=== PATIENT | female | born 1995 | race Caucasian/White ===

== ENCOUNTER 2016-12-01 10:34 | Inpatient (IN) | payer MEDICAID ==
[~2016-12-01] VITALS: Ht 139.7 cm; Wt 76.8 kg
[~2016-12-01 10:34] MED LIST: ACET500C5 PO; ONDA4TAB8 PO
[2016-12-01 11:13] VITALS: BP 113/67; PULSE 85; Ht 139.7 cm; Wt 76.8 kg
[2016-12-01] MEDS ORDERED: PRENAT PO (11:15)
[2016-12-01] MEDS ORDERED: CARBOPROST 250 MCG INJ IM PRN (12:00)
[2016-12-01] MEDS ORDERED: METHYLERGONOVINE 0.2 MG INJ IM PRN (12:00)
[2016-12-01] MEDS ORDERED: AMPICILLIN 2 GM/NS (PMX) 100 ML IV ONE (12:00)
[2016-12-01] MEDS ORDERED: LIDOCAINE 1% (MPF) 30 ML INJ INJ PRN (12:00)
[2016-12-01] MEDS ORDERED: LACTATED RINGER'S 1,000 ML IV PRN (12:00)
[2016-12-01] MEDS ORDERED: MISOPROSTOL 200 MCG TAB PR PRN (12:00)
[2016-12-01] MEDS ORDERED: OXYTOCIN 30 UNITS/LR 500 ML IV PRN (12:00)
[2016-12-01] MEDS: LACTATED RINGER'S 1,000 ML IV SCH ×2 (12:44→22:40)
[2016-12-01 13:00] LABS: ADD SCAN DIFF NO
[2016-12-01 13:16] LABS: BASOPHILS % 0.2 % (0.0-2.0); EOSINOPHILS # 0.1 10^3/ul (0.0-0.5); EOSINOPHILS % 0.5 % (0.0-7.0); HEMATOCRIT 38.5 % (37.0-47.0); HEMOGLOBIN 13.7 g/dl (12.0-16.0); LYMPHOCYTES % 19.1 % (15.0-51.0); MEAN CORPUSCULAR HEMOGLOBIN 30.8 pg (29.0-33.0); MEAN CORPUSCULAR HGB CONC 35.6 g/dl (32.0-37.0); MEAN CORPUSCULAR VOLUME 86.5 fl (82.0-101.0); MEAN PLATELET VOLUME 11.5 fl (7.4-10.4); MONOCYTE # 0.7 10^3/ul (0.3-0.9); MONOCYTES % 6.2 % (0.0-11.0); NEUTROPHIL # 7.8 10^3/ul (1.6-7.5); NEUTROPHILS % 73.5 % (39.0-77.0); PLATELET COUNT 208 10^3/UL (140-415); RED BLOOD COUNT 4.45 10^6/ul (4.20-5.40); RED CELL DISTRIBUTION WIDTH 13.2 % (11.5-14.5); WHITE BLOOD COUNT 10.6 10^3/ul (4.8-10.8)
[2016-12-01 14:33] LABS: INR 0.88; PARTIAL THROMBOPLASTIN TIME 22.9 Sec (25.0-35.0); PROTIME 11.9 Sec (12.2-14.2); PT RATIO 0.9
--- NOTE | 2016-12-01 15:48 | RADRPT ---
PROCEDURE: US OB. CLINICAL INDICATION: Size and dates , macrosomia TECHNIQUE: Multiple sonographic images of the pelvis and gravid uterus were obtained. The images were reviewed on a PACS workstation. COMPARISON: No prior studies are available for comparison. FINDINGS: There is a single viable intrauterine gestation. Cardiac activity is present with 132 beats per min betzaida. There is a vertex presentation. The placenta is posterior. There is no evidence for an abruption or placenta previa. Measurements were made in order to determine age. The results are as follows: BPD =9.0 cm HC =32.4 cm AC =34.8 cm FL =7.2 cm Estimated gestational age of approximately 37 weeks and 1 day based on ultrasound measurements. Clinical age: 41 weeks and 1 day. The estimated date of delivery is 12/21/16, based on ultrasound measurements. The EFW = 3308 g. RPTAT: AA IMPRESSION: Single viable intrauterine gestation of approximately 37 weeks and 1 days based on ultrasound measu rements. Smaller than clinical age by 4 weeks. .Gokul Richards MD, MD Date Time Electronically viewed and signed by .Gokul Richards MD, on 12/01/2016 15:48 .S/
[2016-12-01] MEDS: AMPICILLIN 1 GM/NS (PMX) 50 ML IV SCH ×3 (16:19→23:59)
[2016-12-01] MEDS ORDERED: OXYTOCIN 30 UNITS/LR 500 ML IV SCH ×2 (16:30)
[2016-12-01] MEDS: OXYTOCIN 30 UNITS/LR 500 ML IV SCH (16:47)
--- NOTE | 2016-12-01 17:28 | HP ---
Date/Time of Note Date/Time of Note DATE: 12/01/16 TIME: 17:21 OB - History Hx of Present Free Text/Dictation 20 years old female 1 para 0 EDC November 23, 2016 admitted to [facility] at 41 week and 1day for induction of labor pelvic examination on admission cervix 2 cm dilated 70% effaced vertex at -2 station plan of Pitocin induction discussed with the patient pros and cons sprain patient agreed Chief Complaint: 41 week and 1 day admitted for induction of labor Estimated Due Date: Nov 23, 2016 : 1 Para: 0 Care: Good Care Ultrasounds: Normal mid trimester US Obstetrical Complications: None Medical Complications: None Past Family/Social History * Past Medical, Surgical, Family and Obstetric Histories reviewed from chart. Rubella: immune RPR/VDRL: Negative GBS Status: Negative HBsAG: Negative OB Admission Exam Vital Signs Vital Signs Vital Signs Date Time Temp Pulse Resp B/P Pulse Ox O2 Delivery O2 Flow Rate FiO2 12/01/16 11:13 98.4 85 113/67 Physical Exam HEENT: WNL Heart: Rhythm Normal Lungs: Clear, Equal Abdomen: WNL Extremities: Normal Cervical Dilatation: 2cm Effacement: 75% Station: -2 Membranes: Ruptured Amniotic Fluid: Clear Heart Rate: 130's Decelerations: Variable Decelerations Varibility: Moderate Contractions on Admission: None Last 72 hours Lab Results CBC & BMP 12/01/16 12:40 OB Assessment/Plan Reason for admission: other (Induction of labor with Pitocin IV drip) GINA FISH MD Dec 01, 2016 17:28
[2016-12-02] MEDS ORDERED: ACETAMINOPHEN 325 MG TAB PO ONE (01:00)
[2016-12-02] MEDS: AMPICILLIN 1 GM/NS (PMX) 50 ML IV SCH ×5 (04:28→19:59)
[2016-12-02] MEDS: LACTATED RINGER'S 1,000 ML IV SCH ×3 (04:59→22:56)
[2016-12-02] MEDS ORDERED: LACTATED RINGER'S 1,000 ML IV ONE (21:42)
[2016-12-02] MEDS ORDERED: FENTAnyl 2MCG/ML-ROPIV 0.2% 100 ML ONE (21:46)
[2016-12-02] MEDS ORDERED: ONDANSETRON 4 MG INJ ONE (21:50)
[2016-12-02] MEDS ORDERED: CITRIC ACID/NA CITRATE 30 ML CUP ONE (21:50)
[2016-12-02] MEDS ORDERED: CITRIC ACID/NA CITRATE 30 ML CUP PO ONE (22:00)
[2016-12-02] MEDS ORDERED: FENTAnyl 2MCG/ML-ROPIV 0.2% 100 ML BAG EPI SCH (22:00)
[2016-12-02] MEDS ORDERED: morphine 2 MG INJ IV PRN ×2 (22:00)
[2016-12-02] MEDS ORDERED: DIPHENHYDRAMINE 50 MG INJ IV PRN (22:00)
[2016-12-02] MEDS ORDERED: NALOXONE (0.4 MG/ML) INJ IV PRN (22:00)
[2016-12-02] MEDS ORDERED: KETOROLAC 30 MG INJ IV PRN (22:00)
[2016-12-02] MEDS ORDERED: ONDANSETRON 4 MG INJ IV ONE (22:00)
[2016-12-02] MEDS ORDERED: PROCHLORPERAZINE 10 MG INJ IV PRN (22:00)
[2016-12-02] MEDS ORDERED: ONDANSETRON 4 MG INJ IV PRN (22:00)
[2016-12-02] MEDS: FENTAnyl 2MCG/ML-ROPIV 0.2% 100 ML BAG EPI SCH (22:57)
[2016-12-03] MEDS: AMPICILLIN 1 GM/NS (PMX) 50 ML IV SCH ×6 (00:57→20:22)
[2016-12-03] MEDS: LACTATED RINGER'S 1,000 ML IV SCH ×3 (04:15→20:09)
[2016-12-03] MEDS: FENTAnyl 2MCG/ML-ROPIV 0.2% 100 ML BAG EPI SCH (07:15)
[2016-12-03] MEDS ORDERED: MINERAL OIL LIGHT 10 ML VIAL TOP ONE (19:30)
[2016-12-04] MEDS: AMPICILLIN 1 GM/NS (PMX) 50 ML IV SCH ×4 (00:22→12:00)
[2016-12-04] MEDS: LACTATED RINGER'S 1,000 ML IV SCH ×2 (01:58→11:58)
[2016-12-04] MEDS ORDERED: DEXTROSE 5%-LR 1,000 ML IV PRN (02:00)
[2016-12-04] MEDS: FENTAnyl 2MCG/ML-ROPIV 0.2% 100 ML BAG EPI SCH (02:12)
[2016-12-04] MEDS: OXYTOCIN 30 UNITS/LR 500 ML IV SCH ×3 (06:12→20:45)
[2016-12-04] MEDS ORDERED: CEFAZOLIN 2 GM/50 ML (PMX) 50 ML IVPB ONE (07:00)
[2016-12-04] MEDS ORDERED: LACTATED RINGER'S 1,000 ML IV ONE (07:40)
[2016-12-04] MEDS ORDERED: FAMOTIDINE 20 MG INJ IV ONE (08:00)
[2016-12-04] MEDS ORDERED: METOCLOPRAMIDE 10 MG INJ IV ONE (08:00)
[2016-12-04] MEDS ORDERED: CITRIC ACID/NA CITRATE 30 ML CUP PO ONE (08:00)
[2016-12-04] MEDS ORDERED: LIDOCAINE 2%/EPI 30 ML INJ ONE ×2 (09:15→09:26)
[2016-12-04] MEDS ORDERED: SODIUM BICARBONATE (IV ADD) 50 ML ONE (09:15)
[2016-12-04] MEDS ORDERED: FENTAnyl 50 MCG/ML VIAL ONE (09:21)
[2016-12-04] MEDS ORDERED: morphine SULFATE/PF (10 MG/10 ML) INJ ONE (09:23)
[2016-12-04] MEDS ORDERED: PHENYLephrine (100 MCG/ML) 5ML SYG ONE (09:59)
[2016-12-04] MEDS ORDERED: DIPHENHYDRAMINE 50 MG INJ IV PRN ×2 (10:00)
[2016-12-04] MEDS ORDERED: FENTAnyl 50 MCG/ML VIAL IV PRN (10:00)
[2016-12-04] MEDS ORDERED: KETOROLAC 30 MG INJ IV PRN (10:00)
[2016-12-04] MEDS ORDERED: NALOXONE (0.4 MG/ML) INJ IV PRN (10:00)
[2016-12-04] MEDS ORDERED: HYDROmorphONE 1 MG/ML SYG IV PRN ×2 (10:00)
[2016-12-04] MEDS ORDERED: ZOLPIDEM 5 MG TAB PO PRN (10:00)
[2016-12-04] MEDS ORDERED: HYDROmorphONE (0.2 MG/ML) 10ML SYG IV PRN (10:00)
[2016-12-04] MEDS ORDERED: PROCHLORPERAZINE 10 MG INJ IV PRN ×2 (10:00)
[2016-12-04] MEDS ORDERED: MEPERIDINE 25 MG INJ IV PRN (10:00)
[2016-12-04] MEDS ORDERED: ONDANSETRON 4 MG INJ IV PRN ×2 (10:00)
[2016-12-04] MEDS ORDERED: ONDANSETRON 4 MG INJ ONE (10:01)
--- NOTE | 2016-12-04 10:42 | OPR ---
Operative Report Planned Procedure Free Text/Dictation 21 years old 1 para 0 whom she was admitted at 41 weeks and 4 days for induction of labor pelvic examination on admission cervix was 2 cm dilated 75% effaced vertex at -2 station patient underwent Pitocin induction, progress to 5 cm dilatation but no further progress from then on also she developed tachycardia during the last 30-45 minutes before delivery, due to failure to progress and tachycardia alternative route of delivery by section discussed with her, pros and cons ,complications including but not limited to bowel and bladder injury infection hemorrhage wound hematoma she declined further trial of labor requesting delivery Procedure date Dec 04, 2016 Procedure(s) Primary Performed by: GINA FISH MD Assisting provider: VINCENT ROSE MD Anesthesiologist: SMITH ANTOINE MD Pre-procedure diagnosis 41 weeks 4 days failure to progress, tachycardia Anesthesia Type: epidural Procedure Description Under satisfactory epidural anesthesia, patient was prepped and draped and placed in a supine position, tilted to the left. Pfannenstiel incision was made , carried through the subcutaneous tissue. Bleeders brought under control with electrocautery. Fascia incised to the length of the incision. Rectus muscles from the fascia, divided midline. Peritoneum exposed, entered through a transverse incision. Exploration of abdomen revealed gravid uterus. at term normal-appearing tubes and ovaries and evidence of long labor, bladder flap was developed. Transverse incision was made in the lower segment of the uterus. Amniotic sac ruptured. Meconium stain amniotic fluid noted. Live baby girl was delivered from occiput posterior with nuchal cord 1 tight around the baby' s neck [] Nasal oropharyngeal suction was performed. baby handed to the team for immediate attention. placenta delivered manually was intact. Meconium stain sent to pathology, uterine cavity was cleaned with wet sponge and drainage established. Uterus closed in 2 layers using Monocryl #1 [] in continuous fashion. Peritoneal cavity irrigated with warm saline. Sponge, needle and instrument count reported to be correct. Abdominal peritoneum closed with 2-0 chromic catgut] continuously. Rectus muscle approximated with [] several interrupted 2-0 chromic catgut. Fascia closed with #1 PDS subcutaneous tissue approximated with several interrupted 2-0 chromic catgut [], skin closed with osbaldo. Estimated blood loss 600 cc . Urine bag contained 200 mL of clear urine patient tolerated procedure well and transferred to recovery room in good condition Post-Procedure Findings: Live Baby [girl], Apgars [8] and [9], weight [], position vertex, presentation occiput posterior Complications: None Pt Condition post procedure: stable Disposition: other (Recovery room) Physician Certification I, the undersigned physician, hereby certify that I have discussed the procedure described in this consent form with this patient (or the patient's legal operations support representative), including: * The risk and benefits of the procedure; * Any adverse reactions that may reasonably be expected to occur; * Any alternative efficacious methods of treatment which may be medically viable ; * The potential problems that may occur during recuperation; * Potential for blood transfusion and associated risks/benefits; and * Any research or economic interest I may have regarding this treatment. I further certify that the patient/legally responsible person was encouraged to ask question and that all questions were answered. GINA FISH MD Dec 04, 2016 10:29
[2016-12-04] MEDS ORDERED: CARBOPROST 250 MCG INJ IM PRN (16:00)
[2016-12-04] MEDS ORDERED: LANOLIN 7 GM TUBE TOP PRN (16:00)
[2016-12-04] MEDS ORDERED: MISOPROSTOL 200 MCG TAB PR PRN (16:00)
[2016-12-04] MEDS ORDERED: CEFAZOLIN 1 GM/50 ML (PMX) 50 ML IVPB SCH (16:00)
[2016-12-04] MEDS ORDERED: ACETAMINOPHEN/CODEINE #3 TAB PO PRN ×2 (16:00)
[2016-12-04] MEDS ORDERED: OXYTOCIN 30 UNITS/LR 500 ML IV PRN (16:00)
[2016-12-04] MEDS ORDERED: METHYLERGONOVINE 0.2 MG INJ IM PRN (16:00)
[2016-12-04 16:30] VITALS: BP 128/76; PULSE 82; RESP 18
[2016-12-04 17:00] VITALS: BP 130/69; PULSE 82; RESP 18
[2016-12-04 17:30] VITALS: BP 123/68; PULSE 79; RESP 19
[2016-12-04 18:00] VITALS: BP 123/67; PULSE 97
[2016-12-04] MEDS: KETOROLAC 30 MG INJ IV PRN (19:59)
[2016-12-04 20:00] VITALS: BP 121/69; PULSE 100; RESP 16
[2016-12-04] MEDS: SENNA/DOCUSATE NA (8.6MG/50MG) TAB PO SCH (20:44)
[2016-12-05] VITALS: BP 115/56; PULSE 105; RESP 17
[2016-12-05] MEDS: OXYTOCIN 30 UNITS/LR 500 ML IV SCH ×7 (01:24→23:56)
[2016-12-05 04:00] VITALS: BP 121/65; PULSE 91; RESP 18
[2016-12-05] MEDS: KETOROLAC 30 MG INJ IV PRN (05:37)
[2016-12-05] MEDS: IBUPROFEN 600 MG TAB PO SCH ×4 (06:00→23:07)
[2016-12-05 07:55] VITALS: BP 112/68; PULSE 86; RESP 18
[2016-12-05 07:58] LABS: ADD SCAN DIFF NO
[2016-12-05 08:14] LABS: BASOPHILS % 0.2 % (0.0-2.0); EOSINOPHILS # 0.1 10^3/ul (0.0-0.5); EOSINOPHILS % 0.9 % (0.0-7.0); HEMATOCRIT 29.7 % (37.0-47.0); HEMOGLOBIN 10.4 g/dl (12.0-16.0); LYMPHOCYTES # 1.5 10^3/ul (0.8-2.9); LYMPHOCYTES % 12.1 % (15.0-51.0); MEAN CORPUSCULAR HEMOGLOBIN 30.9 pg (29.0-33.0); MEAN CORPUSCULAR VOLUME 88.1 fl (82.0-101.0); MEAN PLATELET VOLUME 11.4 fl (7.4-10.4); MONOCYTE # 0.7 10^3/ul (0.3-0.9); MONOCYTES % 5.2 % (0.0-11.0); NEUTROPHIL # 10.3 10^3/ul (1.6-7.5); NEUTROPHILS % 80.8 % (39.0-77.0); PLATELET COUNT 149 10^3/UL (140-415); RED BLOOD COUNT 3.37 10^6/ul (4.20-5.40); RED CELL DISTRIBUTION WIDTH 13.5 % (11.5-14.5); WHITE BLOOD COUNT 12.8 10^3/ul (4.8-10.8)
[2016-12-05] MEDS: SENNA/DOCUSATE NA (8.6MG/50MG) TAB PO SCH ×2 (09:33→20:17)
[2016-12-05] MEDS: OXYCODONE/ACETAMINOPHEN (5/325) TAB PO PRN ×3 (10:39→23:07)
[2016-12-05 12:00] VITALS: BP 107/58; PULSE 98; RESP 20
--- NOTE | 2016-12-05 14:34 | PN ---
Date/Time of Note Date/Time of Note DATE: 12/05/16 TIME: 14:33 OB Subjective Subjective Subjective Post day 1 Afebrile vital signs are listed abdomen soft bowel sounds present lochia moderate extremity normal ambulation encouraged Laboratory Tests Test 12/05/16 07:32 White Blood Count 12.810^3/ul Red Blood Count 3.3710^6/ul Hemoglobin 10.4g/dl Hematocrit 29.7% Mean Corpuscular Volume 88.1fl Mean Corpuscular Hemoglobin 30.9pg Mean Corpuscular Hemoglobin Concent 35.0g/dl Red Cell Distribution Width 13.5% Platelet Count 70601^3/UL Mean Platelet Volume 11.4fl Neutrophils % 80.8% Lymphocytes % 12.1% Monocytes % 5.2% Eosinophils % 0.9% Basophils % 0.2% Nucleated Red Blood Cells % 0.0/100WBC Neutrophils # 10.310^3/ul Lymphocytes # 1.510^3/ul Monocytes # 0.710^3/ul Eosinophils # 0.110^3/ul Basophils # 0.010^3/ul Nucleated Red Blood Cells # 0.010^3/ul Current Medications Medications (Trade) Dose Ordered Sig/Roberta Route PRN Reason Start Time Stop Time Status Last Admin Dose Admin Lactated Ringer's 1,000 ml @ 125 mls/hr Q8H IV 12/01/16 11:58 12/04/16 16:24 DC 12/04/16 01:58 Ampicillin 100 ml @ 100 mls/hr ONCE ONCE IV 12/01/16 12:00 12/01/16 13:00 DC 12/01/16 12:55 Ampicillin (Ampicillin 1 Gm/ NS (Pmx)) 50 ml @ 100 mls/hr Q4H IV 12/01/16 16:00 12/04/16 16:24 DC 12/04/16 08:22 Lidocaine 30 ml 30 ml ONCE PRN INJ EPISIOTOMY/TEARING 12/01/16 12:00 12/04/16 16:24 DC Lactated Ringer's 1,000 ml @ 2,000 mls/hr Q30M PRN IV PRE-EPIDURAL BOLUS 12/01/16 12:00 12/04/16 16:24 DC 12/02/16 21:39 Oxytocin/Lactated Ringer's 500 ml @ 0 mls/hr ONCE PRN IV For Hemorrhage Management 12/01/16 12:00 12/04/16 16:22 DC Methylergonovine Maleate (Methergine) 0.2 mg ONCE PRN IM VAGINAL BLEEDING 12/01/16 12:00 12/04/16 16:23 DC Carboprost Tromethamine (Hemabate) 250 mcg ONCE PRN IM VAGINAL BLEEDING 12/01/16 12:00 12/04/16 16:23 DC Misoprostol 1000 mcg 1,000 mcg ONCE PRN OR VAGINAL BLEEDING 12/01/16 12:00 12/04/16 16:23 DC Oxytocin/Lactated Ringer's 500 ml @ 0 mls/hr TITRATE IV 12/01/16 16:30 12/04/16 16:23 DC 12/04/16 06:12 Oxytocin/Lactated Ringer's 500 ml @ 125 mls/hr ONCE -MAY REPEAT X1 IV 12/01/16 16:30 12/04/16 16:23 DC 12/04/16 10:55 Oxytocin/Lactated Ringer's 500 ml @ 125 mls/hr ONCE IV 12/01/16 16:30 12/04/16 16:23 DC 12/04/16 14:59 Acetaminophen 650 mg 650 mg ONCE ONCE PO 12/02/16 01:00 12/02/16 01:01 DC Lactated Ringer's (Lr) 1,000 ml @ 1,000 mls/hr Q1H ONCE IV 12/02/16 21:42 12/02/16 22:41 DC Ondansetron HCl (Zofran Inj) 4 mg pre-procedure ONCE IV 12/02/16 22:00 12/02/16 22:01 DC 12/02/16 21:52 Citric Acid/ Sodium Citrate (Bicitra) 30 ml PRE-OP ONCE PO 12/02/16 22:00 12/02/16 22:01 DC 12/02/16 21:51 Naloxone HCl (Narcan) 0.1 mg Q2M PRN IV FOR RESP RATE 8 OR LESS 12/02/16 22:00 12/03/16 21:59 DC Ketorolac Tromethamine (Toradol) 30 mg Q6H PRN IV PAIN 12/02/16 22:00 12/03/16 21:59 DC Morphine Sulfate (morphine) 2 mg Q3H PRN IV PAIN LEVEL 1-5 12/02/16 22:00 12/03/16 21:59 DC Morphine Sulfate (morphine) 4 mg Q3H PRN IV PAIN LEVEL 6-10 12/02/16 22:00 12/03/16 21:59 DC Diphenhydramine HCl (Benadryl) 25 mg Q6H PRN IV ITCHING 12/02/16 22:00 12/03/16 21:59 DC Ondansetron HCl (Zofran Inj) 4 mg Q6H PRN IV NAUSEA AND/OR VOMITING 12/02/16 22:00 12/03/16 21:59 DC Prochlorperazine (Compazine Inj) 10 mg ONCE PRN IV NAUSEA AND/OR VOMITING 12/02/16 22:00 12/03/16 21:59 DC Fentanyl/ Ropivacaine 100 ml 100 ml EPIDURAL INFUSION EPI 12/02/16 22:00 12/02/16 22:50 DC Fentanyl/ Ropivacaine 100 ml @ ud STK-MED ONCE .ROUTE 12/02/16 21:46 12/02/16 21:47 DC Citric Acid/ Sodium Citrate (Bicitra) 30 ml STK-MED ONCE .ROUTE 12/02/16 21:50 12/02/16 21:51 DC Ondansetron HCl (Zofran Inj) 4 mg STK-MED ONCE .ROUTE 12/02/16 21:50 12/02/16 21:51 DC Fentanyl/ Ropivacaine 100 ml EPIDURAL INFUSION EPI 12/02/16 22:00 12/04/16 16:23 DC 12/04/16 02:12 Mineral Oil 20 ml 20 ml ONCE ONCE TOP 12/03/16 19:30 12/03/16 19:31 DC Dextrose/Lactated Ringer's 1,000 ml @ 125 mls/hr Q8H PRN IV prolonged labor, npo 12/04/16 02:00 12/04/16 16:23 DC 12/04/16 02:26 Cefazolin Sodium/ Dextrose 50 ml @ 100 mls/hr ONCE ONCE IVPB 12/04/16 07:00 12/04/16 07:29 DC Lactated Ringer's (Lr) 1,000 ml @ 1,000 mls/hr Q1H ONCE IV 12/04/16 07:40 12/04/16 08:39 DC 12/04/16 08:16 Citric Acid/ Sodium Citrate (Bicitra) 30 ml PRE-OP ONCE PO 12/04/16 08:00 12/04/16 08:01 DC 12/04/16 07:55 Famotidine (Pepcid Iv) 20 mg pre-procedure ONCE IV 12/04/16 08:00 12/04/16 08:01 DC 12/04/16 07:56 Metoclopramide HCl 10 mg 10 mg ONCE ONCE IV 12/04/16 08:00 12/04/16 08:01 DC 12/04/16 07:56 Sodium Bicarbonate (Na Bicarb) 50 ml @ ud STK-MED ONCE .ROUTE 12/04/16 09:15 12/04/16 09:16 DC Lidocaine/ Epinephrine (Xylocaine 2%/ Epi) 30 ml STK-MED ONCE .ROUTE 12/04/16 09:15 12/04/16 09:16 DC Fentanyl (Sublimaze) 100 mcg STK-MED ONCE .ROUTE 12/04/16 09:21 12/04/16 09:22 DC Morphine Sulfate (Duramorph) 10 mg STK-MED ONCE .ROUTE 12/04/16 09:23 12/04/16 09:24 DC Lidocaine/ Epinephrine (Xylocaine 2%/ Epi) 30 ml STK-MED ONCE .ROUTE 12/04/16 09:26 12/04/16 09:27 DC Hydromorphone HCl (Dilaudid (Rec)) 0.4 mg PACU ORDER PRN IV PAIN 12/04/16 10:00 12/04/16 16:00 DC 12/04/16 12:12 Fentanyl (Sublimaze) 25 mcg PACU ORDER PRN IV PAIN 12/04/16 10:00 12/04/16 16:00 DC Ketorolac Tromethamine (Toradol) 30 mg PACU ORDER PRN IV PAIN 12/04/16 10:00 12/04/16 16:00 DC Ondansetron HCl (Zofran Inj) 4 mg PACU ORDER PRN IV NAUSEA AND/OR VOMITING 12/04/16 10:00 12/04/16 16:00 DC Prochlorperazine (Compazine Inj) 5 mg PACU ORDER PRN IV NAUSEA AND/OR VOMITING 12/04/16 10:00 12/04/16 16:00 DC Meperidine HCl (Demerol) 25 mg PACU ORDER PRN IV POST-OP RIGORS 12/04/16 10:00 12/04/16 16:00 DC 12/04/16 10:28 Diphenhydramine HCl (Benadryl) 25 mg PACU ORDER PRN IV PRURITUS 12/04/16 10:00 12/04/16 16:00 DC Phenylephrine HCl (Paulo-Synephrine Inj Syg) 500 mcg STK-MED ONCE .ROUTE 12/04/16 09:59 12/04/16 10:00 DC Ondansetron HCl (Zofran Inj) 4 mg STK-MED ONCE .ROUTE 12/04/16 10:01 12/04/16 10:02 DC Naloxone HCl (Narcan) 0.1 mg Q2M PRN IV FOR RESP RATE 8 OR LESS 12/04/16 10:00 12/05/16 09:59 DC Ketorolac Tromethamine (Toradol) 30 mg Q6H PRN IV PAIN 12/04/16 10:00 12/05/16 09:59 DC 12/05/16 05:37 Hydromorphone HCl (Dilaudid) 0.2 mg Q3H PRN IV PAIN LEVEL 1-5 12/04/16 10:00 12/05/16 09:59 DC Hydromorphone HCl (Dilaudid) 0.4 mg Q3H PRN IV PAIN LEVEL 6-10 12/04/16 10:00 12/05/16 09:59 DC Diphenhydramine HCl (Benadryl) 25 mg Q6H PRN IV ITCHING 12/04/16 10:00 12/05/16 09:59 DC Ondansetron HCl (Zofran Inj) 4 mg Q6H PRN IV NAUSEA AND/OR VOMITING 12/04/16 10:00 12/05/16 09:59 DC Prochlorperazine (Compazine Inj) 10 mg ONCE PRN IV NAUSEA AND/OR VOMITING 12/04/16 10:00 12/05/16 09:59 DC Zolpidem Tartrate (Ambien) 5 mg HS MAY REPEAT X 1 PRN PO INSOMNIA 12/04/16 10:00 12/05/16 09:59 DC Miscellaneous Information (* Miscellaneous Pharmacy Order) Duramorph: 3 mg Epidu... GIVEN XX 12/04/16 10:00 12/04/16 16:23 DC Acetaminophen/ Codeine Phosphate (Tylenol No.3) 1 tab Q4H PRN PO PAIN LEVEL 4-6 12/04/16 16:00 Acetaminophen/ Codeine Phosphate (Tylenol No.3) 2 tab Q4H PRN PO PAIN LEVEL 7-10 12/04/16 16:00 Oxycodone/ Acetaminophen (Percocet (5/ 325)) 1 tab Q4H PRN PO PAIN LEVEL 4-6 12/04/16 16:00 Oxycodone/ Acetaminophen (Percocet (5/ 325)) 2 tab Q4H PRN PO PAIN LEVEL 7-10 12/04/16 16:00 12/05/16 10:39 Ibuprofen (Motrin) 600 mg Q6 PO 12/05/16 06:00 12/05/16 11:47 Simethicone (Mylicon) 160 mg Q8H PRN PO DISTENSION/GAS/BLOATING 12/04/16 16:00 Senna/Docusate Sodium (Senokot-S) 1 tab BID PO 12/04/16 21:00 12/05/16 09:33 Lanolin (Udc-L-Shfqqs) 1 applic BEDSIDE MEDICATION PRN TOP BEDSIDE FOR BRENDA TO NIPPLES 12/04/16 16:00 Diphtheria/ Tetanus/Acell Pertussis 0.5 ml 0.5 ml ONCE ONCE IM* 12/07/16 09:00 12/07/16 09:01 Oxytocin/Lactated Ringer's 500 ml @ 0 mls/hr ONCE PRN IV For Hemorrhage Management 12/04/16 16:00 Methylergonovine Maleate (Methergine) 0.2 mg ONCE PRN IM VAGINAL BLEEDING 12/04/16 16:00 Carboprost Tromethamine (Hemabate) 250 mcg ONCE PRN IM VAGINAL BLEEDING 12/04/16 16:00 Misoprostol 1000 mcg 1,000 mcg ONCE PRN OR VAGINAL BLEEDING 12/04/16 16:00 Cefazolin Sodium 50 ml @ 100 mls/hr ONCE IVPB 12/04/16 16:00 12/04/16 16:35 DC Oxytocin/Lactated Ringer's 500 ml @ 125 mls/hr Q4H IV 12/04/16 15:56 12/05/16 01:24 GINA FISH MD Dec 05, 2016 14:34
[2016-12-05 16:00] VITALS: BP 110/58; PULSE 78; RESP 19
[2016-12-05 20:00] VITALS: BP 108/53; PULSE 92; RESP 17
[2016-12-06] MEDS: OXYCODONE/ACETAMINOPHEN (5/325) TAB PO PRN ×3 (01:37→22:03)
[2016-12-06] MEDS: OXYTOCIN 30 UNITS/LR 500 ML IV SCH ×5 (03:56→19:56)
[2016-12-06 04:00] VITALS: BP 95/51; PULSE 84; RESP 17
[2016-12-06] MEDS: IBUPROFEN 600 MG TAB PO SCH ×4 (05:46→23:47)
[2016-12-06 07:50] VITALS: BP 114/59; PULSE 97; RESP 18
[2016-12-06] MEDS: SENNA/DOCUSATE NA (8.6MG/50MG) TAB PO SCH ×2 (10:11→22:03)
--- NOTE | 2016-12-06 12:08 | QN ---
Documentation Comment Post day 2 Afebrile vital signs stable abdomen soft incision good bowel had normal BM plan of a.m. discharge discussed GINA FISH MD Dec 06, 2016 12:08
[2016-12-06 15:30] VITALS: BP 121/67; PULSE 94; RESP 18
[2016-12-06 20:10] VITALS: BP 121/58; PULSE 88; RESP 17
[2016-12-07 04:20] VITALS: BP 118/68; PULSE 75; RESP 17
[2016-12-07] MEDS: IBUPROFEN 600 MG TAB PO SCH ×4 (05:42→23:31)
[2016-12-07 08:00] VITALS: BP 115/59; PULSE 81; RESP 19
[2016-12-07] MEDS ORDERED: DIPHTH/TET/ACEL PERTUSS (ADULT) 0.5 ML VIAL IM* ONE (09:00)
[2016-12-07] MEDS: SENNA/DOCUSATE NA (8.6MG/50MG) TAB PO SCH ×2 (09:00→22:48)
[2016-12-07 16:00] VITALS: BP 113/63; PULSE 80; RESP 18
--- NOTE | 2016-12-07 16:55 | QN ---
Documentation Comment pod 3 pt doing well vss exam wnl a/p pod3 plan dc home JAM Cunha MD Dec 07, 2016 16:55
[2016-12-07 22:49] VITALS: BP 102/58; PULSE 87; RESP 19
[2016-12-08 04:00] VITALS: BP 104/74; PULSE 88; RESP 17
[2016-12-08] MEDS: IBUPROFEN 600 MG TAB PO SCH ×2 (05:19→12:30)
[2016-12-08 07:50] VITALS: BP 111/72; PULSE 64; RESP 20
[2016-12-08] MEDS: SENNA/DOCUSATE NA (8.6MG/50MG) TAB PO SCH (09:00)
--- NOTE | 2016-12-08 11:28 | PD.PPDC ---
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
--- NOTE | 2016-12-08 11:29 | PD.PPDC ---
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
--- NOTE | 2016-12-08 11:31 | DS ---
Date/Time of Note Date/Time of Note DATE: 12/08/16 TIME: 11:30 Obstetrical Discharge Record Final Diagnosis Final Diagnosis: Term delivered Section Section: Primary Primary Indication failed induction Condition on Discharge Physical Assessment Voiding: Yes Bowel Movement: Yes Breast: Soft, non-tender Fundus: Firm Abdomen and Incision: CDI Calf Tenderness: No Patient Condition: Stable JAM EM MD Dec 08, 2016 11:31
== END 2016-12-08 15:05 | disposition home or self-care (01) | DRG 766 ==
LOC: L-D 10:34 → OBT 10:34 → L-D 11:58 → PP1 12-04 16:06
PROVIDERS: ADMIT Obstetrics & Gynecology; ATTEND Obstetrics & Gynecology
PROC: 3E033VJ Introduction of Other Hormone into Peripheral Vein, Percutaneous Approach (ICD-10-PCS; 2016-12-04)
PROC: 10D00Z1 Extraction of Products of Conception, Low, Open Approach (ICD-10-PCS; principal; 2016-12-04 08:30)
DX: O48.0 Post-term pregnancy (principal); O77.0 Labor and delivery complicated by meconium in amniotic fluid; O76 Abnormality in fetal heart rate and rhythm complicating labor and delivery; Z3A.41 41 weeks gestation of pregnancy; Z37.0 Single live birth; O62.0 Primary inadequate contractions; O69.1XX0 Labor and delivery complicated by cord around neck, with compression, not applicable or unspecified
CPT/HCPCS: 62319; 76815; 85025; 85610; 85730; 86592; 86900; 86901; 90715; 94760; 99464; G0463; J0290; J0690; J1170; J1885; J2175; J2274; J2370; J2405; J2590; J2765; J3010; J7120

== ENCOUNTER 2017-07-23 07:44 | Emergency (ER) | END 2017-07-23 09:38 | disposition home or self-care (01) ==